=== PATIENT | male | born 1990 | race Caucasian/White ===

== ENCOUNTER 2017-12-16 17:41 | Emergency (ER) | payer OTHER ==
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
[2017-12-16] MEDS ORDERED: OXYCODONE/APAP 5/325MG PREPACK#4 BTL TAKEHOME ONE (19:53)
[2017-12-16 20:10] VITALS: BP 140/74
== END 2017-12-16 20:11 | disposition home or self-care (01) ==
PROC: 0HQ1XZZ Repair Face Skin, External Approach (ICD-10-PCS; principal; 2017-12-16)
DX: S02.40EA Zygomatic fracture, right side, initial encounter for closed fracture (principal); S01.81XA Laceration without foreign body of other part of head, initial encounter; S06.0X0A Concussion without loss of consciousness, initial encounter; V16.4XXA Pedal cycle driver injured in collision with other nonmotor vehicle in traffic accident, initial encounter; Y92.410 Unspecified street and highway as the place of occurrence of the external cause; Y99.8 Other external cause status; Y93.55 Activity, bike riding